=== PATIENT | male | born 1955 | race Caucasian/White ===

== ENCOUNTER 2020-12-07 07:53 | Outpatient (CLI) | payer MEDICARE | END 2020-12-07 07:54 | disposition home or self-care (01) | LOC: BICMAMMO 07:53 | PROVIDERS: ATTEND Internal Medicine Rheumatology | DX: M54.6 Pain in thoracic spine (principal); M81.0 Age-related osteoporosis without current pathological fracture; M54.5 Low back pain; M47.814 Spondylosis without myelopathy or radiculopathy, thoracic region; M47.816 Spondylosis without myelopathy or radiculopathy, lumbar region; M85.88 Other specified disorders of bone density and structure, other site | CPT/HCPCS: 72072; 72100; 77080 ==

== ENCOUNTER 2023-03-13 08:07 | Outpatient (CLI) | payer MEDICARE | END 2023-03-13 08:08 | disposition home or self-care (01) | LOC: BICMAMMO 08:07 | PROVIDERS: ATTEND Internal Medicine Rheumatology | DX: M81.0 Age-related osteoporosis without current pathological fracture (principal); M85.851 Other specified disorders of bone density and structure, right thigh; M85.852 Other specified disorders of bone density and structure, left thigh | CPT/HCPCS: 77080 ==